=== PATIENT | female | born 1990 | race Caucasian/White ===

== ENCOUNTER 2018-09-07 11:57 | Outpatient (CLI) | payer OTHER ==
[~2018-09-07] VITALS: Ht 149.9 cm; Wt 53.6 kg
[2018-09-07 12:04] VITALS: BP 101/62; PULSE 100; RESP 17; Ht 149.9 cm; Wt 53.6 kg
[2018-09-07] MEDS ORDERED: TERBUTALINE 1 MG/ML INJ SC ONE ×2 (14:00→16:30)
--- NOTE | 2018-09-10 05:07 | PN ---
Triage Information Date/Time Reason for visit: Vaginal discharge and dizziness Weeks of Gestation 36 weeks and 3 days /Para Diabetes: none Hypertention: none Additional information 28 years old with 2 previous delivery at 36 weeks and 3 days with a FATOU of 10/02/2018 complaining of vaginal discharge and dizziness. She states good movement. She denies nausea, vomiting, shortness of breath, chest pain, headache, visual changes, vaginal bleeding or LOF. Objective Vital Signs Date Temp Pulse Resp B/P (MAP) Pulse Ox O2 O2 Flow FiO2 Time Delivery Rate 09/07/18 98.2 100 17 101/62 12:04 (75) Contractions: 6-10 Minutes Apart Results/Medications Imaging Results FINDINGS: There is a single live intrauterine fetus in a breech presentation. The placenta is implanted posteriorly and is grade II. No previa or abruptio is evident. The amniotic fluid index measures 11.5 cm. The heart rate is 136 beats per minute. Biophysical profile: Tone: 2 breathin Gross body movement: 2 Amniotic fluid: 2 Biophysical profile score: 8/8 IMPRESSION: 1. Single live intrauterine fetus, breech presentation, unchanged. The heart rate is 136 bpm. 2. Posterior placenta, grade 2. No previa or abruptio is evident. 3. Amniotic fluid index 11.5 cm 4. Biophysical profile score: 8/8. Disposition: Discharge Assessment/Plan 28 years old at 36 weeks and 3 days, complaining of vaginal discharge and dizziness. heart rate is category 1. She has some uterine contraction which resolved after receiving IV fluids and 1 dose of terbutaline. Ultrasound performed the biophysical profile 8 out of 8 and ABHILASH of 11.5. After receiving IV fluid she did not have dizziness. Sign and symptom of labor, preeclampsia and kick count discussed in detail with patient. She expressed understanding. All of her questions answered. She discharged home in stable condition with follow-up with her primary OB in 2-3 days. I strongly recommend come back to triage with any further concerns. Date of service 09/07/2018 JACKY VELAZQUEZ Sep 10, 2018 05:07
== END 2018-09-07 17:45 | disposition home or self-care (01) ==
LOC: OBT 11:57 → L-D 11:58 → OBT 17:45
PROVIDERS: ATTEND Obstetrics & Gynecology
DX: O62.9 Abnormality of forces of labor, unspecified (principal); Z3A.36 36 weeks gestation of pregnancy
CPT/HCPCS: 76818; 81003; J3105; Z7500; G0463

== ENCOUNTER 2018-09-11 22:18 | Inpatient (IN) | payer OTHER ==
[~2018-09-11] VITALS: Ht 149.9 cm; Wt 53.2 kg
[2018-09-11 22:15] VITALS: Ht 149.9 cm; Wt 53.2 kg
[2018-09-11 22:22] VITALS: BP 113/60; PULSE 92; RESP 19
[2018-09-11] MEDS ORDERED: PREN-93 PO (22:40)
[2018-09-11] MEDS ORDERED: LACTATED RINGER'S 1,000 ML IV SCH (23:00)
[2018-09-11] MEDS ORDERED: LACTATED RINGER'S 1,000 ML IV ONE (23:00)
[2018-09-11] MEDS ORDERED: ACETAMINOPHEN 1000MG/100ML IV 100 ML IVPB ONE (23:30)
[2018-09-12] MEDS ORDERED: TERBUTALINE 1 MG/ML INJ SC ONE ×2 (01:00)
--- NOTE | 2018-09-12 07:52 | TRIAGE ---
OB Triage Datetime Report Generated by CPN: 09/12/2018 07:51 Datetime: 09/12/2018 07:40 Labor Evaluation Frequency: x2 Monitor Mode: Palpation Duration (sec)2399: 80-120 Quality: Moderate Pattern: Normal: <= 5 Contractions in 10 Minutes Resting Tone Lealman: Relaxed Contraction Comments: uc with irritability Heart Rate FHR Baseline Rate: 145 Monitor Mode: External US Variability: Moderate 6-25 bpm Accelerations: 15X15 Decelerations: None Category: Category I Datetime: 09/12/2018 07:00 Labor Evaluation Frequency: x2 with irritability Monitor Mode: External Pattern: Normal: <= 5 Contractions in 10 Minutes Heart Rate FHR Baseline Rate: 140 Monitor Mode: External US Variability: Moderate 6-25 bpm Accelerations: 15X15 Decelerations: None Category: Category I Comments: Some loss of contact Datetime: 09/12/2018 06:40 Pain Assessment Comments: Unable to assess. Patient sleeping. Datetime: 09/12/2018 06:15 Quality: Mild Resting Tone Lealman: Relaxed Pain Assessment Pain Scale: 8 Pain Presence: Intermittent Pain Type: Contraction Pain Location: Abdomen; Back Pain Relief Measures: Comfort Measures Pain Assessment Comments: Patient is calm and appears comfortable. Patient is sleeping between care . Datetime: 09/12/2018 06:00 Labor Evaluation Frequency: irregular with irritability Monitor Mode: External Duration (sec)2399: 40-190 Pattern: Normal: <= 5 Contractions in 10 Minutes Heart Rate FHR Baseline Rate: 140 Monitor Mode: External US Variability: Moderate 6-25 bpm Accelerations: 15X15 Decelerations: None Category: Category I Datetime: 09/12/2018 05:32 Stage of : OB Triage Temperature Route: Oral Pain Assessment Pain Scale: 8 Pain Presence: Intermittent Pain Type: Contraction Pain Location: Abdomen; Back Pain Relief Measures: Comfort Measures Pain Assessment Comments: Patient sleeping in between care. Patient is calm and appears comfortable . Datetime: 09/12/2018 05:00 Labor Evaluation Frequency: x2 with irritability Monitor Mode: External Duration (sec)2399: 40-290 Pattern: Normal: <= 5 Contractions in 10 Minutes Heart Rate FHR Baseline Rate: 145 Monitor Mode: External US Variability: Moderate 6-25 bpm Accelerations: 15X15 Decelerations: Variable Category: Category II Datetime: 09/12/2018 04:21 Quality: Mild Resting Tone Lealman: Relaxed Datetime: 09/12/2018 04:00 Labor Evaluation Frequency: x1 with irritability Monitor Mode: External Heart Rate FHR Baseline Rate: 145 Monitor Mode: External US Variability: Moderate 6-25 bpm Accelerations: 15X15 Decelerations: None Category: Category I Datetime: 09/12/2018 03:56 Headache: Generalized Pain Assessment Pain Scale: 8 Pain Presence: Intermittent Pain Type: Contraction Pain Location: Abdomen Pain Relief Measures: Comfort Measures Pain Assessment Comments: Patient c/o headache 8/10. Datetime: 09/12/2018 03:30 Stage of : OB Triage Datetime: 09/12/2018 03:29 Quality: Mild Resting Tone Lealman: Relaxed Datetime: 09/12/2018 03:10 Quality: Mild Resting Tone Lealman: Relaxed Datetime: 09/12/2018 03:00 Labor Evaluation Frequency: occasional with irritability Monitor Mode: External Heart Rate FHR Baseline Rate: 140 Monitor Mode: External US Variability: Moderate 6-25 bpm Accelerations: 15X15 Pain Assessment Pain Scale: 7 Pain Presence: Intermittent Pain Type: Contraction Pain Location: Abdomen Pain Relief Measures: Comfort Measures Pain Assessment Comments: Patient states "I don't feel good to go home." Datetime: 09/12/2018 02:53 Stage of : OB Triage Datetime: 09/12/2018 02:46 Quality: Mild Resting Tone Lealman: Relaxed Datetime: 09/12/2018 02:19 Quality: Mild Resting Tone Lealman: Relaxed Datetime: 09/12/2018 02:12 Labor Evaluation Frequency: x1 with irritability Monitor Mode: External Duration (sec)2399: 130 Pattern: Normal: <= 5 Contractions in 10 Minutes Heart Rate FHR Baseline Rate: 140 Monitor Mode: External US Variability: Absent - Undetectable Accelerations: 15X15 Decelerations: Variable Category: Category II Pain Assessment Pain Scale: 4 Pain Presence: Intermittent Pain Type: Contraction Pain Location: Abdomen Pain Relief Measures: Comfort Measures Pain Assessment Comments: Patient states she feels better. Datetime: 09/12/2018 01:00 Labor Evaluation Frequency: x3 Monitor Mode: External Duration (sec)2399: 90-190 Pattern: Normal: <= 5 Contractions in 10 Minutes Heart Rate FHR Baseline Rate: 135 Monitor Mode: External US Variability: Moderate 6-25 bpm Accelerations: 15X15 Decelerations: None Category: Category I Datetime: 09/12/2018 00:54 Quality: Mild Resting Tone Lealman: Relaxed Pain Assessment Pain Scale: 8 Pain Presence: Intermittent Pain Type: Contraction Pain Location: Abdomen; Back Pain Relief Measures: Comfort Measures Datetime: 09/12/2018 00:33 Quality: Mild Resting Tone Lealman: Relaxed Pain Assessment Pain Scale: 8 Pain Presence: Intermittent Pain Type: Contraction Pain Location: Abdomen Pain Relief Measures: Comfort Measures Datetime: 09/12/2018 00:10 Pain Assessment Pain Scale: 8 Pain Presence: Intermittent Pain Type: Contraction Pain Location: Abdomen Pain Relief Measures: Comfort Measures Datetime: 09/12/2018 00:08 Vaginal Exam Dilatation (cms): 0.0 Effacement (%): 0 Station: -3 Exam By: Dr. Hernández Vaginal Bleeding: None Cervix, Consistency: Soft Cervix, Position: Posterior Datetime: 09/12/2018 00:00 Labor Evaluation Frequency: irregular Monitor Mode: External Duration (sec)2399: 60-120 Pattern: Normal: <= 5 Contractions in 10 Minutes Heart Rate FHR Baseline Rate: 120 Monitor Mode: External US Variability: Moderate 6-25 bpm Accelerations: 15X15 Decelerations: None Category: Category I Datetime: 09/11/2018 23:41 Pain Assessment Pain Scale: 6 Pain Presence: Intermittent Pain Type: Contraction Pain Location: Abdomen Pain Relief Measures: Comfort Measures Datetime: 09/11/2018 23:11 Quality: Mild Resting Tone Lealman: Relaxed Pain Assessment Pain Scale: 6 Pain Presence: Intermittent Pain Type: Contraction Pain Location: Abdomen Pain Relief Measures: Comfort Measures Datetime: 09/11/2018 23:00 Labor Evaluation Frequency: x2 Monitor Mode: External Duration (sec)2399: 50-150 Pattern: Normal: <= 5 Contractions in 10 Minutes Heart Rate FHR Baseline Rate: 120 Monitor Mode: External US Variability: Moderate 6-25 bpm Accelerations: 15X15 Decelerations: None Category: Category I Datetime: 09/11/2018 22:44 Labor Evaluation Frequency: 2-9 Monitor Mode: External Duration (sec)2399: 40-80 Pattern: Normal: <= 5 Contractions in 10 Minutes Heart Rate FHR Baseline Rate: 130 Monitor Mode: External US Variability: Moderate 6-25 bpm Accelerations: 15X15 Decelerations: None Category: Category I Datetime: 09/11/2018 22:34 Vaginal Exam Dilatation (cms): 0.0 Effacement (%): 0 Station: -3 Exam By: Deacon Lafleur RN Vaginal Bleeding: None Cervix, Consistency: Firm Cervix, Position: Posterior Datetime: 09/11/2018 22:32 Quality: Mild Resting Tone Lealman: Relaxed Datetime: 09/11/2018 22:22 Stage of : OB Triage Assessment Type: Triage Maternal Assessment Level of Consciousness: Fully Conscious DTR's/Clonus: DTRs 2+; No Clonus Headache: Denies Blurred Vision: No Respiratory Effort: Unlabored; Regular Rhythm; Equal Expansion Breath Sounds, Left: Clear and Equal Breath Sounds, Right: Clear and Equal Nausea/Vomiting: Denies RUQ Epigastric Pain: Denies Lower Extremities Edema: None Degree: None Upper Extremities Edema: None Degree: None Facial Edema: None Temperature Route: Oral Fall Risk Assessment History of Falling: (0) No Secondary Diagnosis: (0) No Ambulatory Aid: (0) Bedrest/Nurse Assist IV Therapy: (0) No Gait: (0) Normal/Bedrest/Immobile Mental Status: (0) Oriented to Own Ability Fall Score: 0 Fall Risk Score Definition: No Risk: No action required Comments: Patient states she feels active movement Pain Assessment Pain Scale: 6 Pain Presence: Intermittent Pain Type: Contraction Pain Location: Abdomen Pain Relief Measures: Comfort Measures Datetime: 09/11/2018 22:21 Monitor Mode: External (Annotations: applied) Quality: Mild Resting Tone Lealman: Relaxed Monitor Mode: External US (Annotations: applied) Datetime: 09/11/2018 22:15 Time of Arrival: 09/11/2018 22:15 EGA: 37.0 Arrived By: Wheelchair Arrived From: Home Chief Complaint: Contractions since 2144 Movement: Present Contractions: Irregular Time Contractions Began: 09/11/2018 21:45 Rupture of Membranes: Denies Vaginal Bleeding: None Vaginal Discharge: Denies Recent Sexual Intercouse: Denies Abdominal Trauma: Not Applicable Patient Complaints: Contractions Additional Patient Complaints: hx x2 sections Time Provider Notified: 09/11/2018 22:46 Provider Notified: Dr. Hilliard Initial Plan: EFM x2, SVE Datetime: 09/07/2018 17:17 Pattern: Normal: <= 5 Contractions in 10 Minutes Resting Tone Lealman: Relaxed Contraction Comments: no uc Heart Rate FHR Baseline Rate: 145 Variability: Moderate 6-25 bpm Accelerations: 15X15 Decelerations: None Category: Category I Pain Presence: None/Denies Pain Type: N/A Datetime: 09/07/2018 17:00 Labor Evaluation Frequency: x3 Monitor Mode: External Duration (sec)2399: 60-120 Quality: Mild Pattern: Normal: <= 5 Contractions in 10 Minutes Resting Tone Lealman: Relaxed Heart Rate FHR Baseline Rate: 145 Monitor Mode: External US Variability: Moderate 6-25 bpm Accelerations: 15X15 Decelerations: None Category: Category I Pain Presence: None/Denies Pain Type: N/A Datetime: 09/07/2018 16:00 Labor Evaluation Frequency: x6 Monitor Mode: External Duration (sec)2399: 60-150 Quality: Mild Pattern: Normal: <= 5 Contractions in 10 Minutes Resting Tone Lealman: Relaxed Heart Rate FHR Baseline Rate: 135 Monitor Mode: External US Variability: Moderate 6-25 bpm Accelerations: 15X15 Decelerations: None Category: Category I Pain Presence: None/Denies Pain Type: N/A Datetime: 09/07/2018 15:00 Labor Evaluation Frequency: x3 Monitor Mode: External Duration (sec)2399: 60-100 Quality: Mild Pattern: Normal: <= 5 Contractions in 10 Minutes Resting Tone Lealman: Relaxed Heart Rate FHR Baseline Rate: 145 Monitor Mode: External US Variability: Moderate 6-25 bpm Accelerations: 15X15 Decelerations: None Category: Category I Datetime: 09/07/2018 14:01 Labor Evaluation Frequency: x2 Monitor Mode: External Duration (sec)2399: 60-80 Quality: Mild Pattern: Normal: <= 5 Contractions in 10 Minutes Resting Tone Lealman: Relaxed Heart Rate FHR Baseline Rate: 135 Monitor Mode: External US Variability: Moderate 6-25 bpm Accelerations: 15X15 Decelerations: None Category: Category I Datetime: 09/07/2018 13:01 Labor Evaluation Frequency: x4 Monitor Mode: External Duration (sec)2399: 60-80 Quality: Mild Pattern: Normal: <= 5 Contractions in 10 Minutes Resting Tone Lealman: Relaxed Contraction Comments: uc with irritability Heart Rate FHR Baseline Rate: 135 Monitor Mode: External US Variability: Moderate 6-25 bpm Accelerations: 15X15 Decelerations: None Category: Category I Datetime: 09/07/2018 12:07 Assessment Type: Triage Maternal Assessment Level of Consciousness: Fully Conscious DTR's/Clonus: DTRs 2+; No Clonus Headache: Denies Blurred Vision: No Respiratory Effort: Unlabored; Regular Rhythm; Equal Expansion Breath Sounds, Left: Clear and Equal Breath Sounds, Right: Clear and Equal Nausea/Vomiting: Denies RUQ Epigastric Pain: Denies Lower Extremities Edema: None Degree: None Upper Extremities Edema: None Degree: None Facial Edema: None Fall Risk Assessment History of Falling: (0) No Secondary Diagnosis: (0) No Ambulatory Aid: (0) Bedrest/Nurse Assist IV Therapy: (0) No Gait: (0) Normal/Bedrest/Immobile Mental Status: (0) Oriented to Own Ability Fall Score: 0 Fall Risk Score Definition: No Risk: No action required Datetime: 09/07/2018 12:06 Time of Arrival: 09/07/2018 11:34 EGA: 36.3 Arrived By: Ambulatory Arrived From: Other Unit in Hospital Chief Complaint: pt. came to hospital c/o dizziness, abd. cont. pain, yellowish discharge Movement: Present Contractions: Denies/Absent Rupture of Membranes: Denies Vaginal Bleeding: None Vaginal Discharge: Present Recent Sexual Intercouse: Denies Abdominal Trauma: Not Applicable Patient Complaints: Dizziness Time Provider Notified: 09/07/2018 12:08 Provider Notified: Initial Plan: r/o ptl Vaginal Exam Dilatation (cms): 0.0 Exam By: jelly
[2018-09-12] MEDS ORDERED: BUTORPHANOL 2 MG INJ IV ONE (14:30)
[2018-09-12] MEDS: LACTATED RINGER'S 1,000 ML IV SCH ×2 (15:33→19:20)
[2018-09-12] MEDS ORDERED: OXYTOCIN 30 UNITS/LR 500 ML IV PRN (18:00)
[2018-09-12] MEDS ORDERED: OXYTOCIN 30 UNITS/LR 500 ML IV SCH ×2 (18:00→23:37)
[2018-09-12] MEDS ORDERED: MISOPROSTOL 200 MCG TAB PR PRN (18:00)
[2018-09-12] MEDS ORDERED: METHYLERGONOVINE 0.2 MG INJ IM PRN (18:00)
[2018-09-12] MEDS ORDERED: CARBOPROST 250 MCG INJ IM PRN (18:00)
[2018-09-12] MEDS ORDERED: CEFAZOLIN 2 GM/50 ML (PMX) 50 ML IVPB SCH (18:00)
--- NOTE | 2018-09-12 20:06 | PREAC ---
Date/Time of Note Date/Time of Note DATE: 09/12/18 TIME: 20:05 Anesthesia Eval and Record Evaluation Time Pre-Procedure Interview DATE: 09/12/18 TIME: 20:05 Age 28 Sex female NPO: 8 hrs Preoperative diagnosis iup at 37 weeks Planned procedure repeat c section Past Medical History Past Medical History: Includes Heme: Anemia Surgery & Anesthesia Issues No known issue Meds Anticoagulation: No Beta Alisia within 24 hr: No Reason Beta Alisia not given: Pt. not on B-Alisia Reported Medications Vit No.124/Iron/FA ( Vitamin Tablet) 1 Each Tablet, 1 EACH PO DAILY, TAB 09/11/18 Current Medications Lactated Ringer's 1,000 ml @ 125 mls/hr Q8H IV Last administered on 09/12/18at 19:20; Admin Dose 125 MLS/HR; Start 09/12/18 at 14:30 Cefazolin Sodium/ Dextrose 50 ml @ 100 mls/hr ONCE IVPB ; Start 09/12/18 at 18:00 Oxytocin/Lactated Ringer's 500 ml @ 125 mls/hr POST IV ; Start 09/12/18 at 18:00 Oxytocin/Lactated Ringer's 500 ml @ 0 mls/hr ONCE PRN IV VAGINAL BLEEDING; Start 09/12/18 at 18:00 Methylergonovine Maleate (Methergine) 0.2 mg ONCE PRN IM VAGINAL BLEEDING; Start 09/12/18 at 18:00 Carboprost Tromethamine (Hemabate) 250 mcg ONCE PRN IM VAGINAL BLEEDING; Start 09/12/18 at 18:00 Misoprostol (Cytotec) 1,000 mcg ONCE PRN TX VAGINAL BLEEDING; Start 09/12/18 at 18:00 Meds reviewed: Yes Allergies Coded Allergies: No Known Allergy (Unverified , 09/11/18) Allergies Reviewed: Yes Labs/Studies Labs Reviewed: Reviewed by anesthesiologist Result Diagram: 09/12/18 1525 Laboratory Tests 09/12/18 15:25 Blood Bank Test 09/12/18 15:25 Antibody Screen NEGATIVE Blood Type O POSITIVE Rh Immune Globulin Candidate NO test: Positive Pre-procedure Exam Last vitals Vital Signs Date Temp Pulse Resp B/P (MAP) Pulse Ox O2 O2 Flow FiO2 Time Delivery Rate 09/11/18 97.9 92 19 113/60 Room Air 22:22 (77) Airway: Adequate mouth opening, Adequate thyromental dist Mallampati: Mallampati I Teeth: Normal Lung: Normal Heart: Normal ASA Physical Status ASA physical status: 2 Emergency: None Planned Anesthetic Neuraxial: Spinal Planned Pain Management Sub-arachniod narcotics, Parenteral pain med Pre-operative Attestations Prior to commencing anesthesia and surgery, the patient was re-evaluated, there was verification of: *The patient's identity *The results of appropriate recent lab work and preoperative vital signs *The above evaluation not changing prior to induction *Anesthetic plan, risk benefits, alternative and complications discussed with patient/family; questions answered; patient/family understands, accepts and wishes to proceed. BUCKY LUNDBERG Sep 12, 2018 20:06
[2018-09-12] MEDS ORDERED: FENTAnyl 2MCG/ML-ROPIV 0.2% 100 ML ONE (20:35)
[2018-09-12] MEDS ORDERED: FENTAnyl 50 MCG/ML VIAL ONE (22:26)
[2018-09-12] MEDS ORDERED: LIDOCAINE 1.5%/EPI MPF (SDV) 30 ML VIAL ONE (22:26)
[2018-09-12] MEDS ORDERED: SODIUM BICARBONATE (IV ADD) 50 ML ONE (22:26)
[2018-09-12] MEDS ORDERED: ONDANSETRON 4 MG INJ ONE (22:34)
[2018-09-12] MEDS ORDERED: DEXAMETHASONE 4 MG/ML 1 ML INJ ONE (22:34)
[2018-09-12] MEDS ORDERED: morphine SULFATE/PF (10 MG/10 ML) INJ ONE (22:55)
[2018-09-12] MEDS ORDERED: NALOXONE (0.4 MG/ML) INJ IV PRN (23:00)
[2018-09-12] MEDS ORDERED: ZOLPIDEM 5 MG TAB PO PRN (23:00)
[2018-09-12] MEDS ORDERED: DIPHENHYDRAMINE 50 MG INJ IV PRN (23:00)
[2018-09-12] MEDS ORDERED: ONDANSETRON 4 MG INJ IV PRN (23:00)
[2018-09-12] MEDS ORDERED: HYDROmorphONE 0.5 MG/0.5 ML SYG IV PRN ×2 (23:00)
--- NOTE | 2018-09-12 23:57 | OPR ---
Operative Report Planned Procedure Free Text/Dictation 28 y.o. with an IUP at 37+w in labor and with a breech presentation. Procedure date Sep 12, 2018 Procedure(s) Repeat Performed by see signature line Engineering Aide: ELIZABETH CONNELLY MD Anesthesiologist: BUCKY LUNDBERG Pre-procedure diagnosis IUP at 37+ weeks. Breech. Labor. [id number] Anesthesia Type: [id number] epidural Post-Procedure Post-procedure diagnosis Same Findings Viable baby boy weighing 3270 grams or 7# 3 oz, 19.5" long, and with Apgars of 9/9. Estimated Blood Loss: 400 - 500 mls Specimen(s) none Grafts/Implant(s) none Complication(s) none Pt Condition post procedure: stable Procedure Description Under satisfactory spinal anesthesia, the patient was prepped and draped and placed in a supine position, tilted to the left. Pfannenstiel incision was made, carried through the subcutaneous tissue. Bleeders brought under control with e lectrocautery. Fascia incised to the length of the incision. Rectus muscles from the fascia, divided midline. Peritoneum exposed, entered through a transverse incision. Transverse incision was made in the lower segment of the uterus. Amniotic sac ruptured. Clear amniotic fluid noted. Buttocks were delivered first until the legs could be delivered. The baby was then delivered to the shoulders and the arms were delivered. The head was delivered with a finger in the baby's mouth and with fundal pressure to keep the head flexed. The mouth and nares were bulb suctioned. The cord was doubly clamped and cut. The baby was brought to the warmer and the team for immediate attention. The placenta was delivered manually intact. Uterine cavity was cleaned with wet sponge and drainage established. Uterus closed in 2 layers using #1 chromic in continuous fashion. Peritoneal cavity irrigated with warm saline. Sponge, needle and instrument count reported to be correct. Abdominal peritoneum closed with 2- 0 Chromic continuously. Rectus muscle approximated with the same suture. Fascia closed with 0-Vicryl. The subcutaneous tissue was irrigated and closed with 2-0 Chromic and skin was closed with 3-0 Monocryl in a subcuticular stitch. Steristrips with Mastosol were placed. Estimated blood loss 600 mL. Urine was clear. MIMI TAMEZ MD Sep 12, 2018 23:57
[2018-09-13] MEDS ORDERED: OXYCODONE/ACETAMINOPHEN (5/325) TAB PO PRN ×2
[2018-09-13] MEDS ORDERED: OXYTOCIN 30 UNITS/LR 500 ML IV PRN
[2018-09-13] MEDS ORDERED: LANOLIN HPA 1 PKT TOP PRN
[2018-09-13] MEDS ORDERED: CARBOPROST 250 MCG INJ IM PRN
[2018-09-13] MEDS ORDERED: NACL 0.9% 3 ML SYG IV SCH
[2018-09-13] MEDS ORDERED: OXYTOCIN 30 UNITS/LR 500 ML IV SCH
[2018-09-13] MEDS ORDERED: MISOPROSTOL 200 MCG TAB PR PRN
[2018-09-13] MEDS ORDERED: METHYLERGONOVINE 0.2 MG INJ IM PRN
--- NOTE | 2018-09-13 00:01 | HP ---
Date/Time of Note Date/Time of Note DATE: 09/12/18 TIME: 23:57 OB - History Hx of Present Free Text/Dictation 28 y.o. with an IUP at 37+ weeks , in labor, Breech and with 2 prior c- sections. Estimated Due Date: Oct 02, 2018 : 3 Para: 2 Care: Good Care Ultrasounds: Normal mid trimester US Obstetrical Complications: Other (breech) Medical Complications: None Past Family/Social History * Past Medical, Surgical, Family and Obstetric Histories reviewed from chart. Blood Type: O+ Rubella: immune RPR/VDRL: Negative GBS Status: Unknown HBsAG: Negative OB Admission Exam Vital Signs Vital Signs Vital Signs Date Temp Pulse Resp B/P (MAP) Pulse Ox O2 O2 Flow FiO2 Time Delivery Rate 09/11/18 97.9 92 19 113/60 Room Air 22:22 (77) Physical Exam HEENT: WNL Heart: Rhythm Normal Lungs: Clear Abdomen: WNL Extremities: Normal Reflexes: Normal Cervical Dilatation: None Effacement: 50% Station: -2 Membranes: Intact Amniotic Fluid: Clear Heart Rate: 140's Accelerations: Accelerations Present Decelerations: No Decelerations Varibility: Moderate Contractions on Admission: 6-10 Minutes Apart Intensity: Moderate Last 72 hours Lab Results CBC & BMP 09/12/18 15:25 OB Assessment/Plan Reason for admission: active labor Other Assessment: Breech, previous x 2. Plan: Section MIMI TAMEZ MD Sep 13, 2018 00:01
--- NOTE | 2018-09-13 00:27 | DELSUM ---
Delivery Summary A-C Datetime Report Generated by CPN: 09/13/2018 00:27 DELIVERY PERSONNEL Kai [place]: Monet, Sherrie MATERNAL INFORMATION Delivery Anesthesia: Epidural Medications in Delivery: SEE ANESTHESIA RECORDS Delivery QBL (ml): 500 Placenta Cultured: No Maternal Complications: None RN Comments: R C/S IN LABOR LABOR SUMMARY EDC: 10/02/2018 00:00 EDC: 10/02/2018 00:00 No. Babies in Womb: 1 Attempted: No Labor Anesthesia: Epidural LABOR INFORMATION Reason for Induction: Not Applicable Onset of Labor: 09/11/2018 21:45 Oxytocin: N/A Group B Beta Strep: Done, Result Unknown Antibiotics # of Doses: 1 Antibiotics Time of Last Dose: 09/12/2018 20:33 Steroids Given: None Reason Steroids Not Administered: Not Applicable MEMBRANES Membranes Rupture Method: Artificial Rupture of Membranes: 09/12/2018 22:50 Length of Rupture (hr): 0.02 Amniotic Fluid Color: Clear Amniotic Fluid Amount: Small STAGES OF LABOR Stage 3 hr: 0 Stage 3 min: 1 Total Time in Labor hr: 25 Total Time in Labor min: 7 CSECTION DELIVERY Primary Indication: Repeat Elective Secondary Indication: Breech Presentation CSection Urgency: Non Elective CSection Incidence: Repeat Labor: Labor Elective: Nonelective CSection Incision: Lower Uterine Transverse BABY A INFORMATION Infant Delivery Date/Time: 09/12/2018 22:51 Method of Delivery: Born in Route : No : N/A Forceps: N/A Vacuum Extraction: N/A Shoulder Dystocia : N/A SHOULDER DYSTOCIA BABY A Delivery Date/Time: 09/12/2018 22:51 PRESENTATION/POSITION BABY A Presentation: Unable to Assess Cephalic Presentation: N/A Breech Presentation: Sherif PLACENTA INFORMATION BABY A Placenta Delivery Time : 09/12/2018 22:52 Placenta Method of Delivery: Manual Removal Placenta Status: Delivered SCORES BABY A Heart Rate 1 min: >100 bpm Resp Effort 1 min: Good Cry Reflex Irritability 1 min: Cough/Sneeze/Pulls Away Muscle Tone 1 min: Active Motion Color 1 min: Body Camilla, Extremit Blue Resuscitation Effort 1 min: Tactile Stimulation SCORE 1 MIN: 9 Heart Rate 5 min: >100 bpm Resp Effort 5 min: Good Cry Reflex Irritability 5 min: Cough/Sneeze/Pulls Away Muscle Tone 5 min: Active Motion Color 5 min: Body Camilla, Extremit Blue Resuscitation Effort 5 min: Tactile Stimulation SCORE 5 MIN: 9 INFANT INFORMATION BABY A Gestational Age at Delivery: 37.1 Gestational Status: Early Term- 37- 38.6 Weeks Infant Outcome : Liveborn Condition : Stable Infant Sex: Male IDENTIFICATION/MEDS BABY A ID Band Number: [id number] ID Band Location: Right Leg; Left Arm Sensor Applied: Yes Sensor Number: [id number] Sensor Location : Cord Clamp Vitamin K Given : Aquamephyton 1 mg IM Erythromycin Given: Given Both Eyes WEIGHT/LENGTH BABY A Infant Birthweight (gm): 3270 Weight (lb): 7 Infant Weight (oz): 3 Length (in): 19.50 Infant Length (cm): 49.53 CORD INFORMATION BABY A No. Cord Vessels: 3 Nuchal Cord : N/A Cord Blood Taken: Yes Suction: Mouth; Nose ASSESSMENT BABY A Infant Complications: None Physical Findings at Delivery: Within Normal Limits Infant Respirations: Appears Normal [employer] Lead/ALS Called : No Care By: Whitney TRIANA; NICU RT Transferred To: Remains with Mother
[2018-09-13 02:30] VITALS: BP 105/64; PULSE 61; RESP 18
[2018-09-13 04:00] VITALS: BP 105/64; PULSE 64; RESP 19
[2018-09-13] MEDS: KETOROLAC 30 MG INJ IV PRN ×2 (05:53→18:40)
[2018-09-13 07:53] VITALS: BP 113/62; PULSE 64; RESP 18
--- NOTE | 2018-09-13 09:04 | PN ---
Date/Time of Note Date/Time of Note DATE: 09/13/18 TIME: 09:03 OB Subjective Subjective Subjective POD#1 Patient is doing well. She denies nausea, vomiting, shortness of breath, chest pain, headache. She has been ambulating without difficulty, tolerating regular diet. Pain is well controlled on current medications OB Objective Objective Objective VS - Last 72 Hours, by Label Date Temp Pulse Resp B/P (MAP) Pulse Ox O2 O2 Flow FiO2 Time Delivery Rate 09/13/18 97.9 64 18 113/62 Room Air 07:53 (79) 09/13/18 97.9 64 19 105/64 98 Room Air 04:00 (78) 09/13/18 97.4 61 18 105/64 99 Room Air 02:30 (78) 09/11/18 97.9 92 19 113/60 Room Air 22:22 (77) General: AAO X 3, comfortable, NAD, appropriate mood and affect. Heart: RRR +S1, +S2, no murmurs. Lungs: Clear to auscultation (B/L), no rales, rhonchi or wheezing. ABD: +BS. Soft, non-tender. Uterus 2 cm below umbilicus Incision: Clear, dry, intact. No erythema, drainage or induration. Flank: No CVA tenderness (B/L) LE: Mild edema. No clubbing, cyanosis, thigh or calf tenderness (B/L). Homans 'sign is negative OB Assessment/Plan Other plan: 28 years old 003 s/p delivery at 37+ weeks POD#1 - AF, VSS - Contraception methods with R/B/A/FR discussed - Continue care JACKY VELAZQUEZ Sep 13, 2018 09:04
[2018-09-13 12:00] VITALS: BP 114/68; PULSE 62; RESP 18
[2018-09-13 15:37] VITALS: BP 114/68; PULSE 59; RESP 18
--- NOTE | 2018-09-13 15:52 | PAC ---
Date/Time of Note Date/Time of Note DATE: 09/13/18 TIME: 15:52 Post-Anesthesia Notes Post-Anesthesia Note Last documented vital signs Vital Signs Date Temp Pulse Resp B/P (MAP) Pulse Ox O2 O2 Flow FiO2 Time Delivery Rate 09/13/18 98.2 59 18 114/68 Room Air 15:37 (83) 09/13/18 98 04:00 Activity: WNL Respiratory function: WNL Cardiovascular function: WNL Mental status: Baseline Pain reasonably controlled: Yes Hydration appropriate: Yes Nausea/Vomiting absent: Yes BUCKY LUNDBERG Sep 13, 2018 15:52
--- NOTE | 2018-09-13 15:53 | OPPN ---
Date/Time of Note Date/Time of Note DATE: 09/13/18 TIME: 15:53 Anesthesia Follow up Anesthesia Follow up Last documented vital signs Vital Signs Date Temp Pulse Resp B/P (MAP) Pulse Ox O2 O2 Flow FiO2 Time Delivery Rate 09/13/18 98.2 59 18 114/68 Room Air 15:37 (83) 09/13/18 98 04:00 Respiratory function: WNL Cardiovascular function: WNL Comments satisfactory pain management from intrathecal duramorph BUCKY LUNDBERG Sep 13, 2018 15:53
[2018-09-13 20:40] VITALS: BP 103/67; PULSE 80; RESP 16
[2018-09-13] MEDS: IBUPROFEN 800 MG TAB PO SCH (23:00)
[2018-09-14] MEDS: IBUPROFEN 800 MG TAB PO SCH ×5 (05:41→23:43)
[2018-09-14 08:09] VITALS: BP 91/55; PULSE 71; RESP 18
[2018-09-14 16:40] VITALS: BP 94/45; PULSE 81; RESP 18
[2018-09-14 20:00] VITALS: BP 93/56; PULSE 94; RESP 18
--- NOTE | 2018-09-15 01:18 | PN ---
Date/Time of Note Date/Time of Note DATE: 09/15/18 TIME: 01:16 OB Subjective Subjective Subjective Late entry note. Patient seen on 09/14/2018 POD#2 Patient is doing well. She denies nausea, vomiting, shortness of breath, chest pain, headache. She has been ambulating without difficulty, tolerating regular diet. Pain is well controlled on current medications OB Objective Objective Objective General: AAO X 3, comfortable, NAD, appropriate mood and affect. ABD: +BS. Soft, non-tender. Uterus 2 cm below umbilicus Incision: Clear, dry, intact. No erythema, drainage or induration. Flank: No CVA tenderness (B/L) LE: Mild edema. No clubbing, cyanosis, thigh or calf tenderness (B/L). Homans 'sign is negative OB Assessment/Plan Other plan: 28 years old 003 s/p delivery at 37+ weeks POD#2 - AF, VSS - Contraception methods with R/B/A/FR discussed - Continue care - Discharge home tomorrow - Prescription and instruction given - Follow-up in 1 and 6 weeks JACKY VELAZQUEZ Sep 15, 2018 01:18
--- NOTE | 2018-09-15 01:19 | DS ---
Date/Time of Note Date/Time of Note DATE: 09/15/18 TIME: 01:18 Obstetrical Discharge Record Final Diagnosis Final Diagnosis: Term delivered Other Final Diagnosis 28 years old 003 s/p delivery at 37+ weeks POD#3. Her course was unremarkable. She is ambulating and tolerating regular diet. Pain is controlled on current medication. - AF, VSS - Contraception methods with R/B/A/FR discussed - Continue care - Discharge home tomorrow - Prescription and instruction given - Follow-up in 1 and 6 weeks Section Section: Repeat Condition on Discharge Physical Assessment Voiding: Yes Bowel Movement: Yes Breast: Soft, non-tender Fundus: Firm Calf Tenderness: No Patient Condition: Stable JACKY VELAZQUEZ Sep 15, 2018 01:19
[2018-09-15 03:45] VITALS: BP 98/58; PULSE 73; RESP 20
[2018-09-15] MEDS: IBUPROFEN 800 MG TAB PO SCH ×2 (05:38→12:10)
[2018-09-15 07:30] VITALS: BP 97/53; PULSE 89; RESP 18
[2018-09-15] MEDS ORDERED: DIPHTH/TET/ACEL PERTUSS (ADULT) 0.5 ML VIAL IM* ONE (09:00)
== END 2018-09-15 16:01 | disposition home or self-care (01) | DRG 788 ==
LOC: OBT 22:18 → L-D 22:19 → OBT 09-12 07:30 → L-D 09-12 07:30 → PP1 09-13 02:12
PROVIDERS: ADMIT Obstetrics & Gynecology; ATTEND Obstetrics & Gynecology
PROC: 3E033VJ Introduction of Other Hormone into Peripheral Vein, Percutaneous Approach (ICD-10-PCS; 2018-09-12)
PROC: 10D00Z1 Extraction of Products of Conception, Low, Open Approach (ICD-10-PCS; principal; 2018-09-12 20:30)
DX: O34.211 Maternal care for low transverse scar from previous cesarean delivery (principal); O32.1XX0 Maternal care for breech presentation, not applicable or unspecified; Z3A.37 37 weeks gestation of pregnancy; Z37.0 Single live birth
CPT/HCPCS: 36415; 62319; 76818; 81003; 85025; 85610; 85730; 86592; 86850; 86900; 86901; 87086; 87340; 96360; 96361; 96367; 96372; 99464; G0463; J0131; J0690; J1100; J1885; J2274; J2405; J2590; J3010; J3105; J7120